=== PATIENT | female | born 1980 | race African-American/Black ===

== ENCOUNTER 2017-12-26 02:12 | Emergency (ER) | payer OTHER ==
[~2017-12-26] VITALS: Ht 157.5 cm; Wt 70.3 kg
--- NOTE | 2017-12-26 02:27 | NUR ---
patient walked into ER c/o DUMONT on left frontal lobe x2 days with RUQ abdominal pain x3 days. Denies diarrhea or vomiting. Dr Huston into eval patient
[2017-12-26] MEDS ORDERED: MAG HYDROX/AL HYDROX/SIMETH 30 ML LIQUID UDC ONE (02:39)
[2017-12-26] MEDS ORDERED: LIDOCAINE VISCUS 2% 15 ML UDC ONE (02:40)
[2017-12-26] MEDS ORDERED: MAG HYDROX/AL HYDROX/SIMETH 30 ML LIQUID UDC PO ONE (02:45)
[2017-12-26] MEDS ORDERED: LIDOCAINE VISCUS 2% 15 ML UDC MM ONE (02:45)
--- NOTE | 2017-12-26 03:13 | NUR ---
Patient discharged to home in stable conditon. Written and verbal after care instructions given. Patient verbalizes understanding of instructions. Patient ambulated out of ER with steady gait, no acute signs of distress, VSS, all belongings taken.
[2017-12-26 03:14] VITALS: BP 136/95
== END 2017-12-26 03:14 | disposition home or self-care (01) ==
LOC: ER 02:18
DX: K21.9 Gastro-esophageal reflux disease without esophagitis (principal); R10.12 Left upper quadrant pain; R51 Headache; L30.9 Dermatitis, unspecified; F17.210 Nicotine dependence, cigarettes, uncomplicated
CPT/HCPCS: 99283; A4663